=== PATIENT | female | born 1970 | race Caucasian/White ===

== ENCOUNTER → 2016-04-21 | Outpatient (CLI) | payer OTHER ==
--- NOTE | 2016-04-21 12:28 | WOMENS IMAGING REPORT ---
EXAM DESCRIPTION: U/S BREAST UNILAT LIMITED COMPLETED DATE/TIME: 04/21/2016 11:30 am REASON FOR STUDY: N63 LUMP N63 UNSPECIFIED LUMP IN BREAST COMPARISON: [facility] bilateral mammograms 02/10/2013 TECHNIQUE: Real-time and static grayscale imaging performed of the left breast targeted to the area of clinical concern. Selected color Doppler images recorded. LIMITATIONS: None. FINDINGS: Patient describes an area of pain in her lateral left breast along the edge of a breast im plant. Ultrasound was performed by both myself as well as the technologist. The left lateral edge o f the breast implant is unremarkable. No breast parenchymal, masses, or worrisome areas of acoustic absorption. No focal findings. BIRAD: 1 Negative. RECOMMENDATION: RECOMMENDED FOLLOW-UP: Clinical followup for breast pain. Patient is due for bilateral screening mammography, her last bilateral mammograms are 02/10/2013. Given heterogeneously dense tissue, bilateral screening tomosynthesis with left breast diagnostic kaushik mograms for breast pain are recommended. COMMENT: The [employer] ([employer]) has developed recommendations for screening MRI of the breasts in certain patient populations, to be used in conjunction with mammography. Breast MRI s urveillance may be appropriate for women with more than 20% lifetime risk of developing breast cancer as determined by genetic testing, significant family history of the disease, or history of mantle r adiation for Hodgkins Disease. [employer] Practice Guidelines 2008. TECHNICAL DOCUMENTATION: JOB ID: [id number] [employer]- All Rights Reserved
== END ==
LOC: WI 10:17
PROVIDERS: ATTEND Surgery
DX: N63 Unspecified lump in breast (principal)
CPT/HCPCS: 76642